=== PATIENT | male | born 1960 | race American Indian/Alaskan Native ===

== ENCOUNTER 2017-11-08 06:17 | Emergency (ER) | payer SELFPAY ==
[2017-11-08 06:52] VITALS: BP 106/70
[2017-11-08 07:44] LABS: Bilirubin,Urine NEG (Negative); Blood,Urine NEG (Negative); Color,Urine Amber (Yellow); Mucus,Urine 1+ /HPF
[2017-11-08 08:16] LABS: Amphetamine Screen,Urine PRESUMPTIVE NEGATIVE; Benzodiazepines Screen,Urine PRESUMPTIVE NEGATIVE; Cocaine Screen,Urine PRESUMPTIVE NEGATIVE; Methadone Screen,Urine PRESUMPTIVE NEGATIVE; Opiate Screen,Urine PRESUMPTIVE NEGATIVE
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
[2017-11-08 08:44] LABS: Cannabinoid Screen,Urine PRESUMPTIVE POSITIVE
== END 2017-11-08 11:01 | disposition home or self-care (01) ==
LOC: EDBD → ED 06:17
DX: F39 Unspecified mood [affective] disorder (principal); S00.83XA Contusion of other part of head, initial encounter; F12.10 Cannabis abuse, uncomplicated; Z63.0 Problems in relationship with spouse or partner; Z87.891 Personal history of nicotine dependence; W22.8XXA Striking against or struck by other objects, initial encounter; Y93.89 Activity, other specified; Y99.8 Other external cause status; Y92.89 Other specified places as the place of occurrence of the external cause
CPT/HCPCS: 80307; 81001